=== PATIENT | female | born 1965 ===

== ENCOUNTER 2021-04-22 21:54 | Emergency (ER) | payer MEDICAID, OTHER ==
[~2021-04-22] VITALS: Ht 152.4 cm; Wt 46.0 kg
[2021-04-22 22:32] VITALS: BP 105/74
== END 2021-04-23 01:40 | disposition left against medical advice (07) ==
LOC: ER 21:54
DX: M79.18 Myalgia, other site (principal); Z53.21 Procedure and treatment not carried out due to patient leaving prior to being seen by health care provider